=== PATIENT | male | born 1955 | race Caucasian/White ===

== ENCOUNTER 2023-07-15 15:48 | Outpatient (CLI) | payer OTHER | END 2023-07-15 15:49 | disposition home or self-care (01) | LOC: BICRAD 15:48 | PROVIDERS: ATTEND Preventive Medicine Occupational Medicine | DX: Z02.71 Encounter for disability determination (principal); M23.92 Unspecified internal derangement of left knee; M17.12 Unilateral primary osteoarthritis, left knee ==